=== PATIENT | male | born 1960 | race Two or more races ===

== ENCOUNTER 2019-08-26 09:57 | Emergency (ER) | payer SELFPAY ==
[~2019-08-26] VITALS: Ht 177.8 cm; Wt 81.6 kg
--- NOTE | 2019-08-26 11:13 | RAD ---
Examination: CT HEAD WO CONTRAST History: Right facial palsy Comparison/Correlation: None Findings: Axial images of the head were obtained without contrast. Ventricles normal size. No intracranial hemorrhage, shift, or mass effect. No depressed fracture. The orbits are partially visualized and unremarkable. Impression: No suspicious process. PQRS Compliance Statement: One or more of the following individualized dose reduction techniques were utilized for this examination: 1. Automated exposure control 2. Adjustment of the mA and/or kV according to patient size 3. Use of iterative reconstruction technique Electronically signed by: Daryl Baker MD (08/26/2019 11:10 AM) [facility]
[2019-08-26] MEDS ORDERED: METH4TAB2 PO (11:18)
--- NOTE | 2019-08-26 11:18 | PHYS DOC ---
Past Medical History Past Medical History: Diabetes-Type II Past Surgical History: No Surgical History Alcohol Use: None Drug Use: None Adult General Chief Complaint Chief Complaint: NEURO SYMPTOMS/DEFICITS [facility] Patient is a 59 year old Colombian speaking male with history of diabetes mellitus who presents with complaint of facial droop. Patient complaining of right-sided facial droop for the last 4 days without new change since it was started. Patient's friend stated he has had slurred speech. Patient denies headache, shortness of breath, chest pain, fever and chills, nausea and vomiting, extremity weakness or numbness history of recent URI symptom. Review of Systems Review of Systems Constitutional: Denies fever or chills [] Eyes: Denies change in visual acuity, redness, or eye pain [] HENT: Denies nasal congestion or sore throat [] Respiratory: Denies cough or shortness of breath [] Cardiovascular: No additional information not addressed in HPI [] GI: Denies abdominal pain, nausea, vomiting, bloody stools or diarrhea [] : Denies dysuria or hematuria [] Musculoskeletal: Denies back pain or joint pain [] Integument: Denies rash or skin lesions [] Neurologic: Denies headache, reports focal weakness Endocrine: Denies polyuria or polydipsia [] All other systems were reviewed and found to be within normal limits, except as documented in this note. Allergies Allergies Allergies Coded Allergies Type Severity Reaction Last Updated Verified No Known Drug Allergies 08/26/19 No Physical Exam Physical Exam Constitutional: Well developed, well nourished, no acute distress, non-toxic asa earance. [] HENT: Normocephalic, atraumatic, bilateral external ears normal, oropharynx moist, no oral exudates, nose normal. [] Eyes: PERRLA, EOMI, conjunctiva normal, no discharge. [] Neck: Normal range of motion, no tenderness, supple, no stridor. [] Cardiovascular:Heart rate regular rhythm, no murmur [] Lungs & Thorax: Bilateral breath sounds clear to auscultation [] Abdomen: Bowel sounds normal, soft, no tenderness, no masses, no pulsatile masses. [] Skin: Warm, dry, no erythema, no rash. [] Back: No tenderness, no CVA tenderness. [] Extremities: No tenderness, no cyanosis, no clubbing, ROM intact, no edema. [] Neurologic: Alert and oriented X 3, right facial droop with involving forehead and eyelids, sensory function, no focal deficits noted. [] Psychologic: Affect normal, judgement normal, mood normal. [] Current Patient Data Vital Signs Vital Signs Date Time Temp Pulse Resp B/P (MAP) Pulse Ox O2 Delivery O2 Flow Rate FiO2 08/26/19 11:42 72 19 159/86 (110) 98 Room Air 08/26/19 10:04 98.7 98.7 Lab Values Laboratory Tests Test 08/26/19 10:15 Glucose (Fingerstick) 186 mg/dL (70-99) H EKG EKG [] Radiology/Procedures Radiology/Procedures [facility] [address] [place] [address] IMAGING REPORT Signed PATIENT: MARINA STEELE ACCOUNT: [id number] : 1960 LOCATION: ER AGE: 59 SEX: M EXAM STATUS: PRE ER ORD. PHYSICIAN: TONIE DANG MD REASON: right facial Parlsy PROCEDURE: CT HEAD WO CONTRAST Examination: CT HEAD WO CONTRAST History: Right facial palsy Comparison/Correlation: None Findings: Axial images of the head were obtained without contrast. Ventricles normal size. No intracranial hemorrhage, shift, or mass effect. No depressed fracture. The orbits are partially visualized and unremarkable. Impression: No suspicious process. PQRS Compliance Statement: One or more of the following individualized dose reduction techniques were utilized for this examination: 1. Automated exposure control 2. Adjustment of the mA and/or kV according to patient size 3. Use of iterative reconstruction technique Electronically signed by: Daryl Clemons MD (08/26/2019 11:10 AM) [facility] DICTATED and SIGNED BY: DARYL CLEMONS MD DATE: 08/26/19 1110 Course & Med Decision Making Course & Med Decision Making Pertinent labs and Imaging studies reviewed. (See chart for details) Evaluation of patient in ER showed 59-year-old male patient with right facial palsy for [address] head was unremarkable. Patient had NIH scale of 3. Patient was advised about test results and plan of care and is to follow-up with his primary care physician. I've spoken with the patient and/or caregivers. I've explained the patient's condition, diagnosis and treatment plan based on information available to me at this time. I've answered the patient's and/or caregivers questions and addressed any concerns. The patient and/or caregivers have a good understanding the patient's diagnosis, condition and treatment plan as can be expected at this point. Vital signs have been stabilized. The patient's condition is stable for discharge from the emergency department. The patient will pursue further outpatient evaluation with her primary care provider or other designated consulting physician as outlined in the discharge instructions. Patient and/or caregivers are agreeable to this plan of care and follow-up instructions have been explained in detail. The patient and/or caregivers have received these instructions in written format and expressed unde rstanding of these discharge instructions. The patient and her caregivers are aware that if any significant change in condition or worsening of symptoms should prompt him to immediately return to this of the closest emergency department. If an emergent department is not readily available I would encourage him to call 911. Arpita Disclaimer Arpita Disclaimer This electronic medical record was generated, in whole or in part, using a voice recognition dictation system. Departure Departure Impression: Primary Impression: Right-sided Lees's palsy Disposition: HOME, SELF-CARE (at 11:15) Condition: STABLE Referrals: CARMEN PULIDO MD Patient Instructions: Lees's Palsy Additional Instructions: Drink plenty of liquids Follow-up with neurology physician in 2-3 days Return to ER if not getting better Keep right eye close at night with applying a piece of tape on your eyelid Thank you for visiting [facility]. We appreciate you trusting us with your care. If any additional problems come up don't hesitate to return to visit us. Please follow up with your primary care provider so they can plan additional care if needed and know about the problem that you had. If symptoms worsen come back to the Emergency Department. Any concerning symptoms that start such as chest pain, shortness of air, weakness or numbness on one side of the body, running high fevers or any other concerning symptoms return to the ER. Scripts Methylprednisolone (MEDROL) 4 Mg Tab.ds.pk 1 PKG PO UD for inflammation, #1 PKG Prov: TONIE DANG MD 08/26/19 NIHSS Stroke Scale NIH Stroke Scale: NIH Stroke Scale Response (Comments) Value Level of Consciousness: 0 Alert/Responsive 0 LOC Questions: 0 Answers both correctly 0 LOC Commands: 0 Performs both tasks 0 Best Gaze: 0 Normal 0 Visual: 0 No visual loss 0 Facial Palsy: 3 Complete paralysis 3 Motor - Left Arm 0 No drift 0 Motor - Right Arm 0 No drift 0 Motor - Left Leg 0 No drift 0 Motor: Right Leg 0 No drift 0 Limb Ataxia: 0 Absent 0 Sensory: 0 No loss 0 Best Language: 0 Normal 0 Dysathria: 0 Normal 0 Extinction and Inattention: 0 Normal 0 Total 3 TONIE DANG MD Aug 26, 2019 11:18
[2019-08-26 11:42] VITALS: BP 159/86
== END 2019-08-26 11:52 | disposition home or self-care (01) ==
LOC: ER 09:57
DX: G51.0 Bell's palsy (principal); E11.9 Type 2 diabetes mellitus without complications
CPT/HCPCS: 70450; 82962; 99285